=== PATIENT | female | born 1985 | race Caucasian/White ===

== ENCOUNTER 2018-02-16 19:12 | Emergency (ER) | END 2018-02-17 00:30 | disposition home or self-care (01) ==

== ENCOUNTER 2019-04-03 15:55 | Outpatient (CLI) | payer OTHER ==
[~2019-04-03] VITALS: Ht 154.9 cm; Wt 67.2 kg
[~2019-04-03 15:55] MED LIST: NAPR-985 PO; NITR-58 PO
[2019-04-03 16:00] VITALS: Ht 154.9 cm; Wt 67.2 kg
--- NOTE | 2019-04-03 17:21 | PN ---
Triage Information Date/Time 2018 Reason for visit: 33-year-old female 5 para 4 at 28+ weeks complaining of back pain vaginal pressure. Claiming she had spotting yesterday without any bleeding today denies cramping Weeks of Gestation 28 weeks and 3 days /Para 5 para 4 Diabetes: none Hypertention: none Objective Heart Rate: 140's Heart Rate Comments Reactive for gestational age Contractions: None Exam Cervix was examined and appeared to be closed No blond and or old blood was felt or seen by the examiner Results/Medications Result Diagram: 04/03/19 1634 Results 24 hrs Laboratory Tests Test 04/03/19 16:05 04/03/19 16:34 Urine Color STRAW Urine Clarity CLEAR Urine pH 8.0 Urine Specific [place] 1.005 Urine Ketones NEGATIVE Urine Nitrite NEGATIVE Urine Bilirubin NEGATIVE Urine Urobilinogen NEGATIVE Urine Leukocyte Esterase NEGATIVE Urine Hemoglobin NEGATIVE Urine Glucose NEGATIVE Urine Total Protein NEGATIVE White Blood Count 8.5 Red Blood Count 3.20 L Hemoglobin 10.5 L Hematocrit 30.8 L Mean Corpuscular Volume 96.3 Mean Corpuscular Hemoglobin 32.8 Mean Corpuscular Hemoglobin Concent 34.1 Red Cell Distribution Width 12.9 Platelet Count 255 Mean Platelet Volume 10.1 # Immature Granulocytes % 0.700 H Neutrophils % 62.3 Lymphocytes % 26.8 Monocytes % 8.8 Eosinophils % 1.2 Basophils % 0.2 Nucleated Red Blood Cells % 0.0 Immature Granulocytes # 0.060 H Neutrophils # 5.3 Lymphocytes # 2.3 Monocytes # 0.8 Eosinophils # 0.1 Basophils # 0.0 Nucleated Red Blood Cells # 0.0 Imaging Results Biophysical profile score = 8/8 Cervix is closed with a length of 3.4 cm. Disposition: Discharge Assessment/Plan Will DC patient home on bedrest Follow-up in clinic for care GIOVANY PALUMBO MD Apr 03, 2019 17:21
--- NOTE | 2019-04-03 17:28 | TRIAGE ---
OB Triage Datetime Report Generated by CPN: 04/03/2019 17:27 Datetime: 04/03/2019 17:24 Stage of : OB Triage Maternal Assessment Level of Consciousness: Keenly Alert, Responsive DTR's/Clonus: DTRs 1+ Headache: Denies Nausea/Vomiting: Denies RUQ Epigastric Pain: Denies Labor Evaluation Frequency: NONE Monitor Mode: External Resting Tone [place]: Relaxed Heart Rate FHR Baseline Rate: 135 Monitor Mode: External US Variability: Moderate 6-25 bpm Accelerations: 15X15 Decelerations: None Pain Assessment Pain Scale: 0 Pain Presence: None/Denies Pain Type: N/A Pain Goal: 3 Vaginal Exam Membrane Status: Intact Datetime: 04/03/2019 17:07 Stage of : OB Triage Maternal Assessment Level of Consciousness: Keenly Alert, Responsive DTR's/Clonus: DTRs 1+ Headache: Denies Nausea/Vomiting: Denies RUQ Epigastric Pain: Denies Labor Evaluation Frequency: NONE Monitor Mode: External Resting Tone [place]: Relaxed Heart Rate FHR Baseline Rate: 135 Monitor Mode: External US Variability: Moderate 6-25 bpm Accelerations: 15X15 Decelerations: None Category: Category I Pain Assessment Pain Scale: 0 Pain Presence: None/Denies Pain Type: N/A Pain Goal: 3 Vaginal Exam Membrane Status: Intact Datetime: 04/03/2019 16:24 Maternal Assessment Level of Consciousness: Keenly Alert, Responsive DTR's/Clonus: DTRs 1+ Headache: Denies Blurred Vision: No Nausea/Vomiting: Denies RUQ Epigastric Pain: Denies Facial Edema: None Labor Evaluation Frequency: NONE Monitor Mode: External Resting Tone [place]: Relaxed Heart Rate FHR Baseline Rate: 135 Monitor Mode: External US Variability: Moderate 6-25 bpm Accelerations: 15X15 Decelerations: None Category: Category I Pain Assessment Pain Scale: 0 Pain Presence: None/Denies Pain Type: N/A Pain Goal: 3 Vaginal Exam Membrane Status: Intact Datetime: 04/03/2019 16:08 Assessment Type: Triage Maternal Assessment Level of Consciousness: Keenly Alert, Responsive DTR's/Clonus: DTRs 2+; No Clonus Headache: Denies Blurred Vision: No Respiratory Effort: Unlabored; Regular Rhythm; Equal Expansion Breath Sounds, Left: Clear and Equal Breath Sounds, Right: Clear and Equal Nausea/Vomiting: Denies RUQ Epigastric Pain: Denies Lower Extremities Edema: None Degree: None Upper Extremities Edema: None Degree: None Facial Edema: None Fall Risk Assessment History of Falling: (0) No Secondary Diagnosis: (0) No Ambulatory Aid: (0) Bedrest/Nurse Assist IV Therapy: (0) No Gait: (0) Normal/Bedrest/Immobile Mental Status: (0) Oriented to Own Ability Fall Score: 0 Fall Risk Score Definition: No Risk: No action required Datetime: 04/03/2019 15:47 Time of Arrival: 04/03/2019 15:47 EGA: 30.0 Arrived By: Ambulatory Arrived From: Home Chief Complaint: PT CAME IN C/O LOWER ABD PAIN, VAGINAL PRESSURE AND SPOTTING SINCE YESTERDAY. SPOT TING RESOLVED TODAY. Movement: Present Contractions: Denies/Absent Rupture of Membranes: Denies Vaginal Discharge: Denies Recent Sexual Intercouse: Denies Abdominal Trauma: Not Applicable Additional Patient Complaints: NONE Time Provider Notified: 04/03/2019 15:55 Provider Notified: ADRIAN Initial Plan: NST, BPP, CX LENGHT, UA AND CBC
== END 2019-04-03 17:25 | disposition home or self-care (01) ==
LOC: OBT 15:55 → L-D 15:57 → OBT 17:25
PROVIDERS: ATTEND Obstetrics & Gynecology
DX: O26.893 Other specified pregnancy related conditions, third trimester (principal); M54.9 Dorsalgia, unspecified; Z3A.28 28 weeks gestation of pregnancy
CPT/HCPCS: 76817; 76818; 81003; 85025; G0463